=== PATIENT | female | born 1945 | race Caucasian/White ===

== ENCOUNTER → 2017-09-13 | Outpatient (CLI) | payer OTHER ==
[~2017-09-13] MED LIST: ACETAMINOPHEN-1 EAC1 PO; AMLODIPINE-BEN1 EAC3 PO; ASPIR 8181 MG PO; ASPIRIN325 PO; BOTOX100 UNIT IM; CELEXA20 MG PO; CELEXA40 MG PO; FLONASE 0.05%50 MCG NASAL; GLUCOPHAGE500 MG PO; KLOR-CON 1010 MEQ PO; LIORESAL 10 MG10 MG PO; LIPITOR 20 MG T20 M1 PO; MACROBID 100 M100 M1 PO; PRILOSEC OTC20 MG PO; PRINIVIL10 MG PO; TRAMADOL 50 MG50 MG PO; TRIAMTERENE-HC1 EAC1 PO; TUMS PO; TURMERIC500 M1 PO; VYTORIN 10-401 EACH PO; WELLBUTRIN SR150 MG PO; WELLBUTRIN XL150 M1 PO; XARELTO10 MG PO
== END ==
LOC: M.RAD 08:50
DX: Z12.31 Encounter for screening mammogram for malignant neoplasm of breast (principal)

== ENCOUNTER 2018-05-03 11:01 | Inpatient (IN) | payer OTHER ==
[2018-04-21 09:02] LABS: ABSOLUTE BASOPHILS 0.1 thou/uL (0.0-0.2); ABSOLUTE EOSINOPHILS 0.2 thou/uL (0.0-0.7); ABSOLUTE LYMPHOCYTES 1.2 thou/uL (0.8-5.3); ABSOLUTE MONOCYTES 0.5 thou/uL (0.0-1.2); ABSOLUTE NEUTROPHILS 3.9 thou/uL (1.6-8.1); BASOPHILS 1.4 %; EOSINOPHILS 3.5 %; HEMATOCRIT 35.5 % (37.0-47.0); HEMOGLOBIN 11.8 gm/dL (12.0-15.0); LYMPHOCYTES 20.2 %; MCH 27.9 pg (26.0-34.0); MCHC 33.3 g/dL (28.0-37.0); MCV 83.8 fL (80.0-100.0); MONOCYTES 8.7 %; MPV 7.7 fl. (7.2-11.1); NUCLEATED RBCS 0 /100WBC; PLATELET COUNT* 291 thou/uL (150-400); POLYS 66.2 %; RBC 4.24 mil/uL (4.20-5.00); WBC 5.9 thou/uL (4.0-11.0)
[2018-04-21 09:11] LABS: CALCIUM 9.4 mg/dL (8.5-10.1); CREATININE 0.9 mg/dL (0.6-1.3); POTASSIUM 4.4 mmol/L (3.5-5.1)
[2018-04-21 09:26] LABS: ALBUMIN 3.3 g/dL (3.4-5.0); TOTAL BILIRUBIN 0.4 mg/dL (<0.1-1.0); TOTAL PROTEIN 6.7 g/dL (6.4-8.2)
[2018-04-21 10:41] LABS: ESR (SEDRATE) 30 mm/hr (0-30)
[2018-04-21 23:09] LABS: GLYCOHEMOGLOBIN (HGB A1C) 6.3 % (4.8-5.6)
[~2018-05-03] VITALS: Ht 167.6 cm; Wt 99.8 kg
[~2018-05-03 11:01] MED LIST changes: +CO Q-10100 MG PO; +FISH OIL 1,001000 M2 PO; +FOLGARD OS TAB1 EACH PO; +LASIX 40 MG TAB40 M2 PO; +MULTIPLE VITAM1 EAC2 PO; -TURMERIC500 M1 PO; +Turmeric PO
[2018-05-03 11:30] VITALS: BP 145/78
[2018-05-03 16:15] VITALS: BP 126/66
[2018-05-03 18:41] VITALS: BP 139/74
[2018-05-03 20:00] VITALS: BP 138/66
[2018-05-04] VITALS: BP 139/79
[2018-05-04 04:00] VITALS: BP 142/70
[2018-05-04 04:37] LABS: HEMATOCRIT 33.7 % (37.0-47.0); HEMOGLOBIN 11.1 gm/dL (12.0-15.0); MCH 27.6 pg (26.0-34.0); MCHC 33.1 g/dL (28.0-37.0); MCV 83.3 fL (80.0-100.0); MPV 8.1 fl. (7.2-11.1); NUCLEATED RBCS 0 /100WBC; PLATELET COUNT* 303 thou/uL (150-400); RBC 4.04 mil/uL (4.20-5.00); RDW-CV 15.6 % (10.5-14.5); WBC 10.6 thou/uL (4.0-11.0)
[2018-05-04 04:52] LABS: ALBUMIN 3.1 g/dL (3.4-5.0); CALCIUM 8.8 mg/dL (8.5-10.1); POTASSIUM 4.8 mmol/L (3.5-5.1); TOTAL BILIRUBIN 0.3 mg/dL (<0.1-1.0); TOTAL PROTEIN 6.3 g/dL (6.4-8.2)
[2018-05-04 07:01] LABS: ABSOLUTE BASOPHILS 0.1 thou/uL (0.0-0.2); ABSOLUTE LYMPHOCYTES 1.1 thou/uL (0.8-5.3); ABSOLUTE MONOCYTES 0.3 thou/uL (0.0-1.2); ABSOLUTE NEUTROPHILS 9.1 thou/uL (1.6-8.1); PLATELET ESTIMATE ADEQUATE
[2018-05-04 07:02] LABS: ANISOCYTOSIS 1+; OVALOCYTES Occasional; POIKILOCYTOSIS 1+
[2018-05-04 08:00] VITALS: BP 133/68
[2018-05-04] MEDS ORDERED: ELIQUIS5 MG PO (12:38)
[2018-05-04] MEDS ORDERED: SENNA S TABLET1 EACH PO (12:39)
[2018-05-04 16:10] VITALS: BP 133/68
[2018-05-04 16:30] VITALS: BP 145/65
--- NOTE | 2018-05-04 16:50 | OP ---
[address] [address] OPERATIVE REPORT Name: SABARICARDA Tia Room: [address] IN [facility]#: [id number] Admission: 05/03/18 Attend Phys: Jace Lopez Discharge: Date of : 49 Report #: [id number] THIS REPORT FOR: //name// CC: Arturo Hays DICTATED BY: Henrry Ceballos DO DATE OF SERVICE: 05/03/2018 PREOPERATIVE DIAGNOSES: 1. Left knee severe degenerative joint disease. 2. Morbid obesity. POSTOPERATIVE DIAGNOSES: 1. Left knee severe degenerative joint disease. 2. Morbid obesity. PROCEDURE PERFORMED: Left total knee arthroplasty. SURGEON: Arturo Odell DO DRILLER'S ASSISTANT: Henrry Ceballos DO SECOND DROP WIRE STRINGER: Juan Ibanez, -3. ESTIMATED BLOOD LOSS: 200 mL. FLUIDS: Crystalloids. DRAINS: None. SPECIMENS: None. COMPLICATIONS: None. CONDITION: Stable. DISPOSITION: PACU to orthopedic floor. PREOPERATIVE ANTIBIOTICS: Ancef 2 grams IV. INDICATIONS: The patient is a pleasant 73-year-old female who has been followed in orthopedic clinic regarding her bilateral knee pain for several years. Two years ago, she underwent a right total knee arthroplasty and has done quite well [address] [address] OPERATIVE REPORT Name: RICARDA WALTER Room: [address] IN [facility]#: [id number] Admission: 05/03/18 Attend Phys: Jace Lopez Discharge: Date of : 49 Report #: [id number] with this. Unfortunately, the left knee has become increasingly painful and x-rays revealed significant degenerative joint disease with loss of joint space, subchondral sclerosis, osteophytic lipping and a slight varus deformity. Due to the progressive nature of her symptoms, which were not responding to nonoperative care including attempted weight loss, activity modification, intra-articular steroid injections, and anti-inflammatory medications, a left total knee arthroplasty was recommended. Risks, indications, and treatment alternatives were reviewed with the patient in detail and she was in agreement with this treatment plan. OPERATION IN DETAIL: The patient was identified in the preoperative holding area where the left knee was correctly identified by the patient and marked. She was taken to the operating room and placed on the operating table in a supine position. She was then given the benefit of general anesthesia. The left lower extremity was then sterilely prepped and draped in the usual fashion. Timeout was performed to ensure everyone in the room was in agreement of the correct patient, operative side, operation and preoperative antibiotics were given. Operation was made much more difficult due to the patient's large body habitus and morbid obesity. Due to this, multiple assistants were required throughout the procedure for adequate exposure, retraction, and help throughout the operation. A straight midline incision was marked out and a 10 blade scalpel was used to sharply dissect through the skin and subcutaneous tissue down to the level of the capsule. A new knife was then used to make our standard medial parapatellar capsulotomy. At this time, the medial periosteal sleeve was developed off of the proximal tibia. The patella was everted and the knee was hyperflexed to 120 degrees. The infrapatellar fat pad was then excised. Hohmann retractors were then placed. The intramedullary drill was then introduced into the femur and the distal femur cutting block was pinned into position in order to take 10 mm off the distal femur and a 5-degree valgus cut. This was confirmed with the mohan-wing. The cutting block was pinned into position and a cut was made through the cutting block. The extramedullary tibial guide was then applied. This was set to appropriate rotation, varus valgus alignment and posterior slope. The cutting block was then pinned into position. This was then confirmed with mohan-wing as well as a drop migel. A cut was then made through the tibial cutting block. This was set to remove 2 mm from the low medial side. The excess bone was then removed and it appeared to be appropriate size cut. Slightly more bone taken from the lateral side. At this time, the knee was taken to full extension. The extension block was placed and found to have a nice fit and was stable to varus and valgus. The knee was then hyperflexed once again with the patella everted and the anterior to posterior sizer for the femur was then placed and the femur was sized to a size 5. The 3 degrees external rotation drill holes were then drilled and the size 5, 4-in-1 cutting block was then malleted into position. The cuts were then made sequentially through the cutting block starting with anterior then posterior, then anterior, posterior chamfer cuts. It was found to be an excellent size for her with no notching. [place] [address] OPERATIVE REPORT Name: RICARDA WALTER Room: [address] [facility].#: [id number] Admission: 05/03/18 Attend Phys: Jace Lopez Discharge: Date of : 49 Report #: [id number] removed with an osteotome. At this time, a Ian and Bovie and electrocautery were used to remove the meniscal remnants. All excess osteophytes were also removed at this time. The tibia was then sized to a size 4 and a trial baseplate was pinned into position, making sure that an appropriate rotation was confirmed by referencing the tibial tubercle and a drop migel with the tibial crest. This was then pinned into position. Trial components were then placed. The knee was taken through range of motion with a 10 mm spacer, was found to be slightly lax in both extension and flexion. Therefore, a 14 mm spacer was then placed and found to have good range of motion and excellent stability. The attention was then taken to the patella where there was found to have significant degenerative changes here. Therefore, the decision was made to resurface it and the Jose Elias patellar reaming system was utilized and the cut was then completed freehand to give a nice flat surface. Patella was then sized to a 32 mm button and the peg holes were then drilled appropriately. The trial patella was then placed and was then placed through a full range of motion and found to track appropriately. With a 14 mm spacer, there was excellent stability with full range of motion. At this point, the trial femur was then removed and the tibial keel was then drilled and punched and a trial tibia was then removed as was the trial patellar button. Bony cut surfaces were then thoroughly irrigated with pulsatile lavage and on the back table, cement was mixed. Bony cut surfaces were then well dried. Hemostasis was achieved with electrocautery over the posterior capsule. The dried bony cut surfaces were then covered in cement as was the back side of the components. The tibial component was then impacted in the appropriate position followed by the femoral components. Excess bone cement was then removed. A 14 mm spacer was then placed. At this time, the patellar component was then placed and clamped into position and all excess cement was removed. The bone cement was allowed to completely dry. The knee was then taken once again through full range of motion and found to have full extension and flexion and excellent stability throughout range of motion and in mid flexion. Trial spacer was then removed. The knee was once again thoroughly irrigated and a Betadine wash was performed. A 14 mm final spacer was then impacted into position and found to be locked into position and once again, the knee was taken through full range of motion and found to have excellent stability. At this time, the tourniquet was let down and hemostasis was achieved with electrocautery. The capsule was then closed with #1 Vicryl suture. The deep subcutaneous layer was then closed with 2-0 Monocryl as well as a dermal layer. Skin was then reapproximated with a running 3-0 Stratafix suture. Dermabond glue was then placed over the skin incision and a sterile Mepilex bandage was then applied. Sponge and needle counts were correct. The patient was awakened from general anesthetic and transferred to the PACU in stable condition. IMPLANTS: The MicroPort Evolution system was used utilizing the following sizes; size 5 left femur component, cruciate retained, a 14 [place] [address] OPERATIVE REPORT Name: RICARDA WALTER Room: [address] IN M.R.#: [id number] Admission: 05/03/18 Attend Phys: Jace Lopez Discharge: Date of : 49 Report #: [id number] ultrahigh molecular weight polyethylene spacer, a size 32 mm patellar component and a size 4 tibial baseplate. <ELECTRONICALLY SIGNED> By: Arturo Odell DO 05/04/18 1650 [id number] 1926Candrew Odell DO /lynette
[2018-05-04 20:00] VITALS: BP 127/68
[2018-05-05 04:38] LABS: HEMATOCRIT 30.9 % (37.0-47.0); HEMOGLOBIN 10.2 gm/dL (12.0-15.0)
[2018-05-05 08:00] VITALS: BP 143/85
[2018-05-05] MEDS ORDERED: TRAMADOL 50 MG50 MG PO (08:24)
[2018-05-05] MEDS ORDERED: LIDODERM1 EACH TRANSDERM (08:24)
[2018-05-05 21:30] VITALS: BP 106/59
[2018-05-06 07:50] VITALS: BP 120/60
[2018-05-06 10:26] VITALS: BP 133/68
[2018-05-06] MEDS ORDERED: ELIQUIS2.5 MG PO (13:52)
[2018-05-06] MEDS ORDERED: OXYCODONE HCL 55 MG PO (13:52)
[2018-05-06] MEDS ORDERED: COLACE100 MG PO (13:53)
== END 2018-05-06 14:30 | disposition home health service (06) | DRG 470 ==
LOC: M.SUR 11:01 → M.TBA 16:41 → M.ORTHSURG 16:41
PROVIDERS: Family Medicine; Orthopaedic Surgery; ADMIT Internal Medicine
PROC: 0SRD0J9 Replacement of Left Knee Joint with Synthetic Substitute, Cemented, Open Approach (ICD-10-PCS; principal; 2018-05-03)
DX: M17.12 Unilateral primary osteoarthritis, left knee (principal); E66.01 Morbid (severe) obesity due to excess calories; Z96.651 Presence of right artificial knee joint; K21.9 Gastro-esophageal reflux disease without esophagitis; E78.5 Hyperlipidemia, unspecified; I10 Essential (primary) hypertension; I25.10 Atherosclerotic heart disease of native coronary artery without angina pectoris; Z86.73 Personal history of transient ischemic attack (TIA), and cerebral infarction without residual deficits; Z88.6 Allergy status to analgesic agent; Z68.35 Body mass index [BMI] 35.0-35.9, adult; Z88.1 Allergy status to other antibiotic agents; Z88.2 Allergy status to sulfonamides; Z88.8 Allergy status to other drugs, medicaments and biological substances; Z82.49 Family history of ischemic heart disease and other diseases of the circulatory system; Z83.3 Family history of diabetes mellitus; Z79.82 Long term (current) use of aspirin; Z79.899 Other long term (current) drug therapy

== ENCOUNTER → 2018-09-26 | Outpatient (CLI) | payer OTHER ==
[~2018-09-26] MED LIST changes: +COLACE100 MG PO; +ELIQUIS2.5 MG PO; +ELIQUIS5 MG PO; +LIDODERM1 EACH TRANSDERM; +OXYCODONE HCL 55 MG PO; +SENNA S TABLET1 EACH PO
== END ==
LOC: M.ULTRA 09-20 11:00
DX: K11.5 Sialolithiasis (principal); K11.8 Other diseases of salivary glands

== ENCOUNTER → 2018-10-27 | Outpatient (CLI) | payer OTHER | LOC: M.RAD 10:08 | DX: Z12.31 Encounter for screening mammogram for malignant neoplasm of breast (principal) ==

== ENCOUNTER → 2019-12-26 | Outpatient (CLI) | payer OTHER | LOC: M.RAD 09:07 | PROVIDERS: ATTEND Family Medicine | DX: Z12.31 Encounter for screening mammogram for malignant neoplasm of breast (principal) ==

== ENCOUNTER → 2020-06-25 | Outpatient (CLI) | payer OTHER | LOC: M.ULTRA 07:26 | PROVIDERS: ATTEND Family Medicine | DX: K76.0 Fatty (change of) liver, not elsewhere classified (principal); K76.89 Other specified diseases of liver ==

== ENCOUNTER 2020-07-11 15:02 | Observation (INO) | payer OTHER ==
[~2020-07-11] VITALS: Ht 165.1 cm; Wt 103.9 kg
[2020-07-11 15:27] VITALS: BP 130/77
[2020-07-11 19:35] LABS: ABSOLUTE BASOPHILS 0.1 thou/uL (0.0-0.2); ABSOLUTE EOSINOPHILS 0.2 thou/uL (0.0-0.7); ABSOLUTE LYMPHOCYTES 1.1 thou/uL (0.8-5.3); ABSOLUTE MONOCYTES 0.5 thou/uL (0.0-1.2); ABSOLUTE NEUTROPHILS 5.7 thou/uL (1.6-8.1); BASOPHILS 1.1 %; EOSINOPHILS 2.1 %; HEMATOCRIT 39.6 % (37.0-47.0); LYMPHOCYTES 14.3 %; MCH 27.4 pg (26.0-34.0); MCHC 32.7 g/dL (28.0-37.0); MCV 83.8 fL (80.0-100.0); MPV 7.8 fl. (7.2-11.1); NUCLEATED RBCS 0 /100WBC; PLATELET COUNT* 310 thou/uL (150-400); POLYS 75.5 %; RBC 4.73 mil/uL (4.20-5.00); RDW-CV 16.2 % (10.5-14.5); WBC 7.6 thou/uL (4.0-11.0)
[2020-07-11 19:43] LABS: CALCIUM 9.4 mg/dL (8.5-10.1); POTASSIUM 4.4 mmol/L (3.5-5.1)
[2020-07-11 19:48] LABS: ALBUMIN 4.1 g/dL (3.4-5.0); TOTAL BILIRUBIN 0.3 mg/dL (<0.1-1.0); TOTAL PROTEIN 7.8 g/dL (6.4-8.2)
[2020-07-11 21:20] VITALS: BP 128/67
[2020-07-11 21:30] VITALS: BP 143/72
[2020-07-11 21:40] VITALS: BP 143/72
--- NOTE | 2020-07-11 21:40 | NUR ---
PT ADMITTED TO FLOOR PER CART ACCOMPANIED BY ER STAFF WITH BELONGINGS. BEDREST, PRAMOD WRAP SPLINT TO RLE, TOES PINK AND WARM, CAP REFILL LESS THEN 3 SECONDS AND +MOVEMENT TOES. PT DENIES NEED FOR PAIN MED AT THIS TIME, CO RLE MUSCLE SPASM-DR TO BE NOTIFIED FOR MED ORDERS. ORIENTED TO ROOM AND CALL LITE, HISTORY OBTAINED AND ASSESSMENT PERFORMED, SEE ADMIT LIST. AOX4, PLEASANT. INSTRUCTED IN NPO AFTER MIDNIGHT AND BEDREST ORDERS AND PT VERBALIZES UNDERSTANDING. RAC IVF PLACED ON PUMP FOR INFUSION, CALL LITE IN EASY REACH.
--- NOTE | 2020-07-12 05:48 | NUR ---
NEW ADMISSION THIS SHIFT. BEDREST,ABLE TO TURN AND REPOSITION SELF. PRAMOD WRAP BULKY SPLINT TO RLE, TOES PNK AND WARM. RAC IVF INFUSING PER PUMP. NPO SINCE MIDNIGHT FOR ORTHO CONSULT. PO PAIN MED AND FLEXERIL GIVEN AT HS WITH GOOD RESULTS. NO LABS THIS MORNING. ABLE TO USE CALL LITE AND MAKE NEEDS KNOWN. EDEMA BLE. USING BEDPAN WITH ASSIST.
[2020-07-12 08:10] VITALS: BP 129/60
--- NOTE | 2020-07-12 13:04 | NUR ---
Pt is A&O. Resides at home alone. Normally independent. Pt states that she has a walker at home, but does not use it. Hx of [facility] . Hx of skilled at [facility]. Pt states that she is current with outpt therapy at [facility] and wants to resume outpt therapy [facility], family/friends can transport. Therapies ordered to see Pt while in the hospital. Per ortho, cam boot to be placed prior to dc. Pt anxious and ready to dc today.
[2020-07-12 14:08] VITALS: BP 129/60
[2020-07-12 14:14] VITALS: BP 129/60
--- NOTE | 2020-07-12 15:00 | NUR ---
PATIENT DISCHARGED TO HOME. DISCHARGE PAPERS REVIEWED AND SIGNED. NO PRESCRIPTIONS. IV REMOVED. CAM BOOT PROVIDED AND PLACED BY ORTHOPEDIC DOCTOR. PATIENT DENIES ANY FURTHER NEEDS. PATIENT TAKEN BY WHEELCHAIR TO EXIT. LEFT WITH SISTER. PATIENT TO FOLLOW-UP WITH OUTPATIENT THERAPY.
[2020-07-12 15:27] VITALS: BP 129/60
--- NOTE | 2020-07-13 08:58 | NUR ---
PLEASE NOTE PT WAS DISCHARGED BEFORE P.T. EVAL AND TREAT COULD BE IMPLEMENTED.
== END 2020-07-12 15:00 | disposition home or self-care (01) ==
LOC: M.ERS 15:02 → M.TBA-ER 20:10 → M.ORTHSURG 20:10
PROVIDERS: Physician Assistant; ADMIT Internal Medicine; ATTEND Internal Medicine
DX: S86.011A Strain of right Achilles tendon, initial encounter (principal); Z20.822 Contact with and (suspected) exposure to COVID-19; I10 Essential (primary) hypertension; K21.9 Gastro-esophageal reflux disease without esophagitis; E87.1 Hypo-osmolality and hyponatremia; M19.90 Unspecified osteoarthritis, unspecified site; E78.5 Hyperlipidemia, unspecified; Z79.82 Long term (current) use of aspirin; Z79.899 Other long term (current) drug therapy; W19.XXXA Unspecified fall, initial encounter; Y93.89 Activity, other specified; Y92.89 Other specified places as the place of occurrence of the external cause

== ENCOUNTER → 2021-01-22 | Outpatient (CLI) | payer OTHER | LOC: M.RAD 12-24 08:50 | PROVIDERS: ATTEND Family Medicine | DX: Z12.31 Encounter for screening mammogram for malignant neoplasm of breast (principal) ==